=== PATIENT | male | born 2005 | race Two or more races ===

== ENCOUNTER 2024-06-06 07:00 | Emergency (ER) | payer OTHER ==
[~2024-06-06] VITALS: Ht 182.9 cm; Wt 60.7 kg
[2024-06-06] MEDS: NEOMYCIN-BACITRACIN-POLYM UNITDOSE PKG TOP OINT TOP ONE (07:47)
[2024-06-06] MEDS: HYDROcodone-ACET 5/325MG TAB PO ONE (07:48)
[2024-06-06] MEDS: cefTRIAXone SOD 1,000 MG VL IM ONE (08:24)
[2024-06-06 08:29] VITALS: BP 110/67; PULSE 68; RESP 18; TEMP 97.9; O2SAT 100
[2024-06-06] MEDS ORDERED: IBUP-1456 PO (08:35)
[2024-06-06] MEDS ORDERED: CEPH500C PO (08:35)
== END 2024-06-06 08:40 | disposition home or self-care (01) ==
LOC: ER 07:00
DX: S62.630A Displaced fracture of distal phalanx of right index finger, initial encounter for closed fracture (principal); S61.300A Unspecified open wound of right index finger with damage to nail, initial encounter; Z79.899 Other long term (current) drug therapy; W22.8XXA Striking against or struck by other objects, initial encounter; Y93.89 Activity, other specified; Y92.89 Other specified places as the place of occurrence of the external cause; Y99.8 Other external cause status
CPT/HCPCS: 29130; 73140; 96372; 99283; J0696